=== PATIENT | female | born 2000 | race Hispanic/Latino ===

== ENCOUNTER 2020-06-11 08:39 | Outpatient (CLI) | payer OTHER, MEDICAID ==
[2020-06-11 14:56] LABS: SARS-CoV-2 PCR by NAA Not Detected (NotDetected)
== END 2020-06-11 08:40 | disposition home or self-care (01) ==
LOC: CSHLAB 08:39
PROVIDERS: ATTEND Family Medicine
DX: Z20.822 Contact with and (suspected) exposure to COVID-19 (principal)
CPT/HCPCS: 87635; U0003; U0005

== ENCOUNTER 2020-06-14 19:00 | Inpatient (IN) | payer MEDICAID, OTHER ==
[2020-06-14 22:30] VITALS: BMI 39.6
[2020-06-14] MEDS ORDERED: Docusate 100 MG CAP PO PRN (22:45)
[2020-06-14] MEDS: Lactated Ringer's 1,000 ML IV SCH (22:45)
[2020-06-14] MEDS ORDERED: Misoprostol 200 MCG TAB PR PRN (22:45)
[2020-06-14] MEDS ORDERED: Promethazine HCl 25 MG/ML VIAL IM PRN (22:45)
[2020-06-14] MEDS ORDERED: Acetaminophen 500 MG TAB PO PRN (22:45)
[2020-06-14] MEDS ORDERED: Methylergonovine 0.2 MG/ML VIAL IM PRN (22:45)
[2020-06-14] MEDS ORDERED: NS / Oxytocin 40 units/1000ml 1,000 ML IV PRN (22:45)
[2020-06-14] MEDS ORDERED: Carboprost 250 MCG/ML AMP IM PRN (22:45)
[2020-06-14] MEDS ORDERED: Ondansetron PF 4 MG/2 ML Vial IVP PRN (22:45)
[2020-06-14] MEDS ORDERED: hydrALAZINE 20 MG/ML VIAL SLOW IVP PRN (22:45)
[2020-06-14] MEDS ORDERED: Lidocaine 1% (PF) 30 ML VIAL SC PRN (22:45)
[2020-06-14] MEDS ORDERED: hydrALAZINE 20 MG/ML VIAL ONE (22:48)
[2020-06-14 23:15] LABS: Hemoglobin 11.6 g/dL (12.0-15.5); Mean Corpuscular Hemoglobin 24.3 pg (27.0-33.0); Mean Corpuscular Volume 75.9 fl (81.6-98.3); Mean Platelet Volume 10.5 fl (7.4-10.4); Platelet Count 251 10x3/uL (150-450); RBC Distribution Width 17.4 % (11.5-14.5); Red Blood Cell (RBC) Count 4.77 10x6/uL (3.90-5.03); White Blood Cell (WBC) Count 15.2 10x3/uL (3.5-10.5)
[2020-06-14] MEDS ORDERED: Calcium Gluc 4.6 MEQ/10 ML (100 MG/ML) SLOW IVP PRN (23:26)
[2020-06-14] MEDS ORDERED: Magnesium Sulfate 20 gm/500 ml 20 GM/500 ML BAG ONE (23:27)
[2020-06-14] MEDS ORDERED: Magnesium Sulfate 20 GM/WATER 500 ML BAG IVPB SCH (23:30)
[2020-06-14] MEDS ORDERED: Magnesium Sulfate 20 gm/500 ml 20 GM/500 ML BAG IVPB SCH (23:30)
[2020-06-14 23:41] LABS: Hep B Surf Ag Non-Reactive S/CO (NonReactive)
[2020-06-14 23:42] LABS: Syphilis Antibody Nonreactive (Nonreactive); Syphilis Antibody Index 0.04 S/CO (<1.00 Non-Reactive)
[2020-06-14] MEDS ORDERED: Labetalol HCl 100 MG/20 ML VIAL SLOW IVP PRN (23:47)
[2020-06-14 23:54] LABS: HBSAg Index 0.13 S/CO (0-0.99)
[2020-06-14] MEDS: hydrALAZINE 20 MG/ML VIAL SLOW IVP PRN (23:56)
[2020-06-15] MEDS ORDERED: Fentanyl 4 mcg/Bup 0.1% Cadd 100 ML ONE (00:11)
[2020-06-15 00:41] LABS: ALT (SGPT) 13 U/L (8-55); AST (SGOT) 19 U/L (5-34); Albumin 3.4 g/dL (3.5-5.0); Alkaline Phosphatase 152 U/L (40-100); Anion Gap 15 mmol/L (10-20); BUN (Urea Nitrogen) 10 mg/dL (7.0-18.7); Bilirubin, Total 0.3 mg/dL (0.2-1.2); Calc. Creatinine Clearance 192 mL/min (70-130); Calcium 8.8 mg/dL (7.8-10.44); Carbon Dioxide 18 mmol/L (22-29); Chloride 107 mmol/L (98-107); Globulin 2.6 g/dL (2.4-3.5); Glucose 90 mg/dL (70-105); Potassium 4.1 mmol/L (3.5-5.1); Sodium 136 mmol/L (136-145)
[2020-06-15 00:43] LABS: Creatinine, Urine 262.43 mg/dL (47-110)
[2020-06-15] MEDS ORDERED: Eucerin (Mineral Oil/Petrolatum,White) 30 gm Jar TOP PRN (00:53)
[2020-06-15] MEDS ORDERED: Ondansetron PF 4 MG/2 ML Vial IVP PRN (00:53)
[2020-06-15] MEDS ORDERED: Lactated Ringer's 500 ML IV PRN (00:53)
[2020-06-15] MEDS ORDERED: ePHEDrine 50 MG/ML VIAL SLOW IVP PRN (00:53)
[2020-06-15] MEDS ORDERED: Promethazine HCl 25 MG/ML VIAL IM PRN (00:53)
[2020-06-15] MEDS ORDERED: Acetaminophen 325 MG TAB PO PRN (00:53)
[2020-06-15] MEDS ORDERED: diphenhydrAMINE 50 MG/ML VIAL IVP PRN (00:53)
[2020-06-15] MEDS ORDERED: Naloxone HCl 0.4 mg/ml Vial IVP PRN ×2 (00:53)
[2020-06-15] MEDS ORDERED: Communication Order-Pharmacy FS SCH (01:00)
[2020-06-15] MEDS ORDERED: Fentanyl 4 mcg/Bupivacaine 0.1% Cassette 100 ML EPIDURAL SCH (01:00)
[2020-06-15] MEDS: NS w/ Oxytocin 30 units 500 ML ONE ×2 (01:11→09:32)
[2020-06-15] MEDS ORDERED: Lactated Ringer's 500 ML IV SCH (03:45)
[2020-06-15] MEDS: Lactated Ringer's 1,000 ML IV SCH (06:48)
[2020-06-15] MEDS ORDERED: Carboprost 250 MCG/ML AMP ONE (07:46)
[2020-06-15] MEDS ORDERED: Methylergonovine 0.2 MG/ML VIAL ONE (07:46)
[2020-06-15] MEDS ORDERED: Misoprostol 200 MCG TAB ONE (07:46)
[2020-06-15 08:36] LABS: RapidComm Collect By NURSE; pH (Cord, venous) 7.272 (7.250-7.350)
[2020-06-15 08:37] LABS: RapidComm Collect By NURSE
[2020-06-15] MEDS ORDERED: Erythromycin Base 0.5% Oint 1 GM TUBE ONE (08:56)
[2020-06-15] MEDS ORDERED: Phytonadione Neonatal 1 MG/0.5 ML AMP ONE (08:56)
[2020-06-15] MEDS ORDERED: Adacel (T-DAP) 0.5 ML SYRINGE IM ONE (09:11)
[2020-06-15] MEDS ORDERED: Bisacodyl 10 MG SUPP PR PRN (09:11)
[2020-06-15] MEDS ORDERED: HYDROcodone/Acetaminophen 5/325 mg Tablet PO PRN (09:11)
[2020-06-15] MEDS ORDERED: hydrALAZINE 20 MG/ML VIAL SLOW IVP PRN (09:11)
[2020-06-15] MEDS ORDERED: Milk Of Magnesia 30 ML UDCUP PO PRN (09:11)
[2020-06-15] MEDS ORDERED: NS w/ Oxytocin 30 units 500 ML IVPB SCH (09:30)
[2020-06-15] MEDS ORDERED: NS w/ Oxytocin 30 units 500 ML ONE (09:31)
[2020-06-15] MEDS: Docusate Calcium (SURFAK) 240 MG CAP PO SCH (22:00)
[2020-06-16] MEDS: Ferrous Sulfate 325 MG TAB PO SCH ×2 (08:25→19:45)
[2020-06-16] MEDS: Docusate Calcium (SURFAK) 240 MG CAP PO SCH ×2 (10:06→20:34)
[2020-06-16] MEDS: Lactated Ringer's 1,000 ML IV SCH ×2 (19:45→23:15)
[2020-06-17] MEDS: hydrALAZINE 20 MG/ML VIAL SLOW IVP PRN (01:22)
[2020-06-17] MEDS ORDERED: NIFEdipine XL 30 MG TAB PO SCH (02:00)
[2020-06-17 05:28] LABS: Hemoglobin 9.3 g/dL (12.0-15.5); Mean Corpuscular HGB CONC 31.4 g/dL (32.0-36.0); Mean Corpuscular Hemoglobin 24.7 pg (27.0-33.0); Mean Corpuscular Volume 78.5 fl (81.6-98.3); Mean Platelet Volume 10.6 fl (7.4-10.4); Platelet Count 235 10x3/uL (150-450); RBC Distribution Width 17.5 % (11.5-14.5); Red Blood Cell (RBC) Count 3.77 10x6/uL (3.90-5.03); White Blood Cell (WBC) Count 9.6 10x3/uL (3.5-10.5)
[2020-06-17 05:43] LABS: ALT (SGPT) 13 U/L (8-55); AST (SGOT) 16 U/L (5-34); Albumin 2.7 g/dL (3.5-5.0); Alkaline Phosphatase 103 U/L (40-100); Anion Gap 14 mmol/L (10-20); BUN (Urea Nitrogen) 5 mg/dL (7.0-18.7); Bilirubin, Total 0.2 mg/dL (0.2-1.2); Calc. Creatinine Clearance 214 mL/min (70-130); Carbon Dioxide 20 mmol/L (22-29); Chloride 110 mmol/L (98-107); Globulin 2.5 g/dL (2.4-3.5); Glucose 102 mg/dL (70-105); Potassium 4.1 mmol/L (3.5-5.1); Protein, Total 5.2 g/dL (6.0-8.3); Sodium 140 mmol/L (136-145)
[2020-06-17 07:17] LABS: Creatinine, Urine 135.51 mg/dL (47-110)
[2020-06-17] MEDS: Ferrous Sulfate 325 MG TAB PO SCH ×2 (08:47→18:36)
[2020-06-17] MEDS: NIFEdipine XL 30 MG TAB PO SCH (08:55)
[2020-06-17] MEDS: Docusate Calcium (SURFAK) 240 MG CAP PO SCH ×2 (08:55→21:11)
[2020-06-17] MEDS: Lactated Ringer's 1,000 ML IV SCH (08:57)
[2020-06-18] MEDS: Lactated Ringer's 1,000 ML IV SCH ×3 (07:43→09:55)
[2020-06-18] MEDS: Ferrous Sulfate 325 MG TAB PO SCH ×3 (07:43→16:06)
[2020-06-18] MEDS: NIFEdipine XL 30 MG TAB PO SCH (07:44)
[2020-06-18] MEDS: Docusate Calcium (SURFAK) 240 MG CAP PO SCH ×2 (07:45→21:54)
[2020-06-18] MEDS: hydrALAZINE 20 MG/ML VIAL SLOW IVP PRN (08:57)
[2020-06-18] MEDS ORDERED: NIFEdipine XL 30 MG TAB PO SCH (09:30)
[2020-06-18] MEDS ORDERED: Bupivacaine 0.25% HCL 30 ML VIAL ONE (19:46)
[2020-06-19] MEDS: Lactated Ringer's 1,000 ML IV SCH (01:47)
[2020-06-19] MEDS: Docusate Calcium (SURFAK) 240 MG CAP PO SCH (08:01)
[2020-06-19] MEDS: Ferrous Sulfate 325 MG TAB PO SCH (08:01)
[2020-06-19] MEDS ORDERED: NIFEdipine XL 60 MG TAB PO SCH (09:00)
[2020-06-19 11:15] VITALS: BP 155/81; TEMP 99.5
== END 2020-06-19 12:35 | disposition home or self-care (01) | DRG 806 ==
LOC: CSHLD 21:45 → CSHANTE 06-15 20:00
PROVIDERS: ADMIT Family Medicine; ATTEND Family Medicine
PROC: 3E033VJ Introduction of Other Hormone into Peripheral Vein, Percutaneous Approach (ICD-10-PCS; 2020-06-13)
PROC: 10907ZC Drainage of Amniotic Fluid, Therapeutic from Products of Conception, Via Natural or Artificial Opening (ICD-10-PCS; 2020-06-14)
PROC: 10E0XZZ Delivery of Products of Conception, External Approach (ICD-10-PCS; principal; 2020-06-15)
PROC: 0KQM0ZZ Repair Perineum Muscle, Open Approach (ICD-10-PCS; 2020-06-15)
DX: O14.14 Severe pre-eclampsia complicating childbirth (principal); D62 Acute posthemorrhagic anemia; Z37.0 Single live birth; Z3A.39 39 weeks gestation of pregnancy; Z20.822 Contact with and (suspected) exposure to COVID-19; O99.214 Obesity complicating childbirth; E66.9 Obesity, unspecified; Z79.82 Long term (current) use of aspirin; O76 Abnormality in fetal heart rate and rhythm complicating labor and delivery; O70.1 Second degree perineal laceration during delivery; O66.0 Obstructed labor due to shoulder dystocia; O99.345 Other mental disorders complicating the puerperium; F53.0 Postpartum depression; O90.81 Anemia of the puerperium
CPT/HCPCS: 36415; 51702; 80053; 82570; 82805; 83735; 84156; 84550; 85027; 86780; 86850; 86900; 86901; 87340; J0360; J2405; J2590; J3475; S0020

== ENCOUNTER 2022-04-04 19:23 | Day surgery (SDC) | payer OTHER ==
[2022-04-04 19:45] VITALS: BMI 32.8
[2022-04-04] MEDS ORDERED: hydrALAZINE 20 MG/ML VIAL SLOW IVP PRN (20:36)
[2022-04-04 21:51] LABS: #Eosinphils 0.1 10x3/uL (0.0-0.5); #Monocytes 0.8 10x3/uL (0.0-1.1); #Neutrophils 9.1 10x3/uL (1.5-8.4); %Basophils 0.2 % (0.0-2.0); %Eosinophils 0.5 % (0.0-6.0); %Lymphocytes 17.7 % (18.0-47.0); %Monocytes 6.5 % (0.0-10.0); %Neutrophils 74.4 % (40.0-75.0); Hemoglobin 10.2 g/dL (12.0-15.5); Mean Corpuscular HGB CONC 32.1 g/dL (32.0-36.0); Mean Corpuscular Hemoglobin 22.9 pg (27.0-33.0); Mean Corpuscular Volume 71.5 fl (81.6-98.3); Mean Platelet Volume 9.6 fl (7.4-10.4); Platelet Count 354 10x3/uL (150-450); RBC Distribution Width 17.7 % (11.5-14.5); Red Blood Cell (RBC) Count 4.45 10x6/uL (3.90-5.03); White Blood Cell (WBC) Count 12.3 10x3/uL (3.5-10.5)
[2022-04-04 22:03] LABS: ALT (SGPT) 9 U/L (8-55); AST (SGOT) 12 U/L (5-34); Albumin 3.5 g/dL (3.5-5.0); Alkaline Phosphatase 101 U/L (40-110); Anion Gap 15 mmol/L (10-20); BUN (Urea Nitrogen) 8 mg/dL (7.0-18.7); Bilirubin, Total 0.2 mg/dL (0.2-1.2); Calc. Creatinine Clearance 180 mL/min (70-130); Calcium 8.9 mg/dL (7.8-10.44); Carbon Dioxide 20 mmol/L (22-29); Chloride 108 mmol/L (98-107); Estimated GFR 130; Globulin 3.1 g/dL (2.4-3.5); Glucose 99 mg/dL (70-105); Protein, Total 6.6 g/dL (6.0-8.3); Sodium 139 mmol/L (136-145)
[2022-04-04 23:02] LABS: Creatinine, Urine 50.04 mg/dL (47-110)
== END 2022-04-05 | disposition home or self-care (01) ==
LOC: CSHLD/OP 19:23
PROVIDERS: ATTEND Obstetrics & Gynecology
DX: O46.93 Antepartum hemorrhage, unspecified, third trimester (principal); O47.03 False labor before 37 completed weeks of gestation, third trimester; Z79.82 Long term (current) use of aspirin; Z79.899 Other long term (current) drug therapy; Z87.59 Personal history of other complications of pregnancy, childbirth and the puerperium; Z3A.30 30 weeks gestation of pregnancy
CPT/HCPCS: 76815; 80053; 82570; 84156; 85025; 99283

== ENCOUNTER → 2022-05-09 | Day surgery (SDC) | payer OTHER ==
[~2022-05-09] MED LIST: Acetaminophen 500 MG TAB ONE; Acetaminophen 500 MG TAB PO SCH; Iron Sucrose Complex 500 MG in Sodium Chloride 0.9% 250 ML 250 ML IVPB SCH
== END ==
LOC: CSHSDC/OP 08:52
PROVIDERS: ATTEND Student in an Organized Health Care Education/Training Program
DX: O99.019 Anemia complicating pregnancy, unspecified trimester (principal); D64.9 Anemia, unspecified
CPT/HCPCS: J1756; J7050

== ENCOUNTER 2022-06-01 11:55 | Inpatient (IN) | payer OTHER ==
[2022-06-01] MEDS ORDERED: Lidocaine 1% (PF) 30 ML VIAL SC PRN (12:44)
[2022-06-01] MEDS ORDERED: Diphenoxylate HCl/Atropine Tablet PO PRN (12:44)
[2022-06-01] MEDS ORDERED: Ibuprofen 800 MG TAB PO PRN (12:44)
[2022-06-01] MEDS ORDERED: Carboprost 250 MCG/ML AMP IM PRN (12:44)
[2022-06-01] MEDS ORDERED: Acetaminophen 500 MG TAB PO PRN (12:44)
[2022-06-01] MEDS ORDERED: Ondansetron PF 4 MG/2 ML Vial IVP PRN ×2 (12:44→13:27)
[2022-06-01] MEDS ORDERED: Misoprostol 200 MCG TAB PR PRN (12:44)
[2022-06-01] MEDS ORDERED: Promethazine HCl 25 MG/ML VIAL IM PRN ×2 (12:44→13:27)
[2022-06-01] MEDS ORDERED: Methylergonovine 0.2 MG/ML VIAL IM PRN ×2 (12:44→13:27)
[2022-06-01] MEDS ORDERED: hydrALAZINE 20 MG/ML VIAL SLOW IVP PRN ×3 (12:44→21:26)
[2022-06-01] MEDS ORDERED: NS w/ Oxytocin 30 units 500 ML IV SCH ×2 (12:45→13:27)
[2022-06-01 12:52] VITALS: BMI 35.9
[2022-06-01] MEDS ORDERED: NS w/ Oxytocin 30 units 500 ML ONE (12:58)
[2022-06-01 13:17] LABS: Hemoglobin 12.2 g/dL (12.0-15.5); Mean Corpuscular HGB CONC 30.8 g/dL (32.0-36.0); Mean Corpuscular Hemoglobin 23.6 pg (27.0-33.0); Mean Corpuscular Volume 76.7 fl (81.6-98.3); Mean Platelet Volume 10.8 fl (7.4-10.4); Platelet Count 296 10x3/uL (150-450); RBC Distribution Width 22.1 % (11.5-14.5); Red Blood Cell (RBC) Count 5.16 10x6/uL (3.90-5.03)
[2022-06-01] MEDS ORDERED: Bisacodyl 10 MG SUPP PR PRN (13:27)
[2022-06-01] MEDS ORDERED: Milk Of Magnesia 30 ML UDCUP PO PRN (13:27)
[2022-06-01] MEDS ORDERED: diphenhydrAMINE 25 MG CAP PO PRN (13:27)
[2022-06-01] MEDS ORDERED: Benzocaine-Menthol 82.5 ML CAN TOP PRN (13:27)
[2022-06-01] MEDS ORDERED: Boostrix 0.5 ML (Tdap) VIAL (>/=7 yrs of age) IM ONE (13:27)
[2022-06-01] MEDS ORDERED: Lanolin Ointment 7 GM TUBE TOP PRN (13:27)
[2022-06-01] MEDS ORDERED: Preparation H Ointment 28 GM TUBE PR PRN (13:27)
[2022-06-01 13:46] LABS: Syphilis Antibody Nonreactive (Nonreactive); Syphilis Antibody Index 0.05 S/CO (<1.00 Non-Reactive)
[2022-06-01 13:47] LABS: HBSAg Index 0.19 S/CO (0-0.99); Hep B Surf Ag - L&D Non-Reactive S/CO (NonReactive)
[2022-06-01] MEDS ORDERED: Misoprostol 200 MCG TAB PR SCH (14:00)
[2022-06-01 16:46] LABS: Creatinine, Urine 38.27 mg/dL (47-110); Protein, Urine Random Quant Less than 10 mg/dL (1-14)
[2022-06-01 17:02] LABS: ALT (SGPT) 11 U/L (8-55); AST (SGOT) 22 U/L (5-34); Albumin 3.8 g/dL (3.5-5.0); Alkaline Phosphatase 134 U/L (40-110); Anion Gap 22 mmol/L (10-20); BUN (Urea Nitrogen) 8 mg/dL (7.0-18.7); Bilirubin, Total 0.2 mg/dL (0.2-1.2); Calc. Creatinine Clearance 179 mL/min (70-130); Calcium 8.9 mg/dL (7.8-10.44); Carbon Dioxide 13 mmol/L (22-29); Chloride 107 mmol/L (98-107); Estimated GFR 127; Glucose 78 mg/dL (70-105); Potassium 4.2 mmol/L (3.5-5.1); Protein, Total 6.8 g/dL (6.0-8.3); Sodium 138 mmol/L (136-145)
[2022-06-01] MEDS: Ibuprofen 800 MG TAB PO SCH ×2 (17:05→23:05)
[2022-06-01] MEDS: Ferrous Sulfate 325 MG TAB PO SCH (17:10)
[2022-06-01] MEDS ORDERED: Calcium Gluc 4.6 MEQ/10 ML (100 MG/ML) SLOW IVP PRN (21:26)
[2022-06-01] MEDS ORDERED: Lorazepam 2 MG/ML VIAL SLOW IVP PRN (21:26)
[2022-06-01] MEDS ORDERED: Magnesium Sulfate 20 gm/500 ml 20 GM/500 ML BAG IVPB SCH (21:30)
[2022-06-01] MEDS ORDERED: Magnesium Sulfate 20 gm/500 ml 20 GM/500 ML BAG ONE (22:15)
[2022-06-02] MEDS: Ferrous Sulfate 325 MG TAB PO SCH ×2 (07:36→13:19)
[2022-06-02] MEDS: Prenatal Vitamin 1 TAB PO SCH (08:01)
[2022-06-02] MEDS: Docusate 100 MG CAP PO SCH ×3 (08:01→21:39)
[2022-06-02] MEDS: Lactated Ringer's 1,000 ML IV SCH (13:18)
[2022-06-02] MEDS: Ibuprofen 800 MG TAB PO SCH ×3 (13:18→21:38)
[2022-06-03] MEDS: Ferrous Sulfate 325 MG TAB PO SCH ×2 (07:29→08:43)
[2022-06-03] MEDS: Prenatal Vitamin 1 TAB PO SCH (08:42)
[2022-06-03] MEDS: Ibuprofen 800 MG TAB PO SCH ×3 (08:43→21:48)
[2022-06-03] MEDS: Docusate 100 MG CAP PO SCH ×2 (08:43→21:49)
[2022-06-03] MEDS ORDERED: NIFEdipine XL 30 MG TAB PO SCH (11:00)
[2022-06-04] MEDS: Ibuprofen 800 MG TAB PO SCH (05:00)
[2022-06-04] MEDS: Ferrous Sulfate 325 MG TAB PO SCH (08:39)
[2022-06-04] MEDS: Prenatal Vitamin 1 TAB PO SCH (08:43)
[2022-06-04] MEDS: Docusate 100 MG CAP PO SCH (08:50)
[2022-06-04] MEDS ORDERED: NIFEdipine XL 30 MG TAB PO SCH (09:00)
[2022-06-04 10:33] VITALS: BP 143/89; TEMP 98.9
== END 2022-06-04 12:59 | disposition home or self-care (01) | DRG 807 ==
LOC: CSHLD/OP 11:55 → CSHLD 12:20 → CSHPP 16:38 → CSHLD 06-02 00:16 → CSHPP 06-02 13:38
PROVIDERS: ADMIT Family Medicine; ATTEND Family Medicine
PROC: 10E0XZZ Delivery of Products of Conception, External Approach (ICD-10-PCS; principal; 2022-06-01)
DX: O99.214 Obesity complicating childbirth (principal); Z37.0 Single live birth; Z3A.38 38 weeks gestation of pregnancy; E66.9 Obesity, unspecified; D64.9 Anemia, unspecified; O99.02 Anemia complicating childbirth; Z79.82 Long term (current) use of aspirin; Z79.899 Other long term (current) drug therapy; O14.15 Severe pre-eclampsia, complicating the puerperium; O13.5 Gestational [pregnancy-induced] hypertension without significant proteinuria, complicating the puerperium
CPT/HCPCS: 51702; 80053; 82570; 84156; 85027; 86780; 86850; 86900; 86901; 87340; 99285; J0360; J2590; J3475

== ENCOUNTER 2023-05-08 08:30 | Day surgery (SDC) | payer BC ==
[2023-05-08] MEDS ORDERED: Acetaminophen 500 MG TAB ONE (08:45)
[2023-05-08] MEDS ORDERED: Acetaminophen 500 MG TAB PO SCH (09:00)
[2023-05-08] MEDS ORDERED: Iron Sucrose Complex 500 MG in Sodium Chloride 0.9% 250 ML 250 ML IVPB SCH (09:30)
== END 2023-05-08 14:10 | disposition home or self-care (01) ==
LOC: CSHSDC 08:30
PROVIDERS: ATTEND Student in an Organized Health Care Education/Training Program
DX: O99.013 Anemia complicating pregnancy, third trimester (principal); Z3A.00 Weeks of gestation of pregnancy not specified
CPT/HCPCS: J1756; J7050

== ENCOUNTER 2023-05-15 18:17 | Inpatient (IN) | payer BC, MEDICAID ==
[2023-05-15 18:50] VITALS: BMI 37.0
[2023-05-15] MEDS ORDERED: Promethazine HCl 25 MG/ML VIAL IM PRN ×2 (18:59→21:54)
[2023-05-15] MEDS ORDERED: Diphenoxylate HCl/Atropine Tablet PO PRN (18:59)
[2023-05-15] MEDS ORDERED: hydrALAZINE 20 MG/ML VIAL SLOW IVP PRN ×2 (18:59)
[2023-05-15] MEDS ORDERED: Acetaminophen 500 MG TAB PO PRN (18:59)
[2023-05-15] MEDS ORDERED: Carboprost 250 MCG/ML AMP IM PRN (18:59)
[2023-05-15] MEDS ORDERED: Tranexamic Acid 1,000 MG/10 ML VIAL IVP PRN (18:59)
[2023-05-15] MEDS ORDERED: fentaNYL 50 mcg/mL 1 mL Vial SLOW IVP PRN (18:59)
[2023-05-15] MEDS ORDERED: Misoprostol 200 MCG TAB PR PRN (18:59)
[2023-05-15] MEDS ORDERED: Ondansetron PF 4 MG/2 ML Vial IVP PRN ×2 (18:59→21:54)
[2023-05-15] MEDS ORDERED: Oxytocin 30 units/NS 500 ML 500 ML IV SCH ×3 (19:00→20:45)
[2023-05-15 19:41] LABS: Creatinine, Urine 90.08 mg/dL (47-110)
[2023-05-15 19:46] LABS: Hematocrit 35.2 % (34.9-44.5); Hemoglobin 11.1 g/dL (12.0-15.5); Mean Corpuscular HGB CONC 31.5 g/dL (32.0-36.0); Mean Corpuscular Hemoglobin 23.2 pg (27.0-33.0); Mean Corpuscular Volume 73.5 fl (81.6-98.3); Mean Platelet Volume 10.4 fl (7.4-10.4); Platelet Count 295 10x3/uL (150-450); RBC Distribution Width 23.2 % (11.5-14.5); Red Blood Cell (RBC) Count 4.79 10x6/uL (3.90-5.03); White Blood Cell (WBC) Count 12.1 10x3/uL (3.5-10.5)
[2023-05-15 19:59] LABS: ALT (SGPT) 9 U/L (8-55); AST (SGOT) 17 U/L (5-34); Albumin 3.5 g/dL (3.5-5.0); Alkaline Phosphatase 100 U/L (40-110); Anion Gap 14 mmol/L (10-20); BUN (Urea Nitrogen) 8 mg/dL (7.0-18.7); Bilirubin, Total 0.2 mg/dL (0.2-1.2); Calc. Creatinine Clearance 201 mL/min (70-130); Calcium 8.6 mg/dL (7.8-10.44); Carbon Dioxide 18 mmol/L (22-29); Chloride 108 mmol/L (98-107); Estimated GFR 129; Globulin 2.9 g/dL (2.4-3.5); Glucose 87 mg/dL (70-105); Potassium 3.7 mmol/L (3.5-5.1); Protein, Total 6.4 g/dL (6.0-8.3); Sodium 136 mmol/L (136-145)
[2023-05-15] MEDS: Lactated Ringer's 1,000 ML IV SCH (20:30)
[2023-05-15] MEDS ORDERED: Lidocaine 1% (PF) 30 ML VIAL SC PRN (20:35)
[2023-05-15] MEDS ORDERED: Misoprostol 100 MCG TAB VAG SCH (20:45)
[2023-05-15] MEDS ORDERED: Naloxone HCl 0.4 mg/ml Vial IVP PRN ×2 (21:54)
[2023-05-15] MEDS ORDERED: ePHEDrine Sulfate 50 MG/10 ML VIAL SLOW IVP PRN (21:54)
[2023-05-15] MEDS ORDERED: Lactated Ringer's 500 ML IV PRN (21:54)
[2023-05-15] MEDS ORDERED: diphenhydrAMINE 50 MG/ML VIAL IVP PRN (21:54)
[2023-05-15] MEDS ORDERED: Acetaminophen 325 MG TAB PO PRN (21:54)
[2023-05-15] MEDS ORDERED: Moisturizing Cream (Eucerin) 113 GM JAR TOP PRN (21:54)
[2023-05-15] MEDS ORDERED: Communication Order-Pharmacy FS SCH (22:00)
[2023-05-15] MEDS ORDERED: fentaNYL 2 mcg/Ropivacaine 0.2% Epidural 100 ML CADD EPIDURAL SCH (22:00)
[2023-05-15] MEDS: fentaNYL/Ropivacaine Epidural 100 ML ONE (22:12)
[2023-05-16] MEDS: Oxytocin 30 units/NS 500 ML 500 ML IV SCH (00:10)
[2023-05-16 00:34] LABS: HBSAg Index 0.21 S/CO (0-0.99); Hep B Surf Ag - L&D Non-Reactive S/CO (NonReactive)
[2023-05-16 00:35] LABS: Syphilis Antibody Nonreactive (Nonreactive)
[2023-05-16] MEDS ORDERED: Bisacodyl 10 MG SUPP PR PRN (03:45)
[2023-05-16] MEDS ORDERED: Milk Of Magnesia 30 ML UDCUP PO PRN (03:45)
[2023-05-16] MEDS: Ibuprofen 800 MG TAB PO PRN (04:54)
[2023-05-16] MEDS ORDERED: Methylergonovine 0.2 MG/ML VIAL IM PRN (07:07)
[2023-05-16] MEDS: Ferrous Sulfate 325 MG TAB PO SCH (08:16)
[2023-05-16] MEDS: Docusate 100 MG CAP PO PRN (08:55)
[2023-05-16] MEDS: Ibuprofen 800 MG TAB PO SCH (14:11)
[2023-05-17] MEDS: Labetalol HCl 100 MG TAB PO SCH ×2 (14:10→20:50)
[2023-05-18] MEDS: Boostrix 0.5 ML (Tdap) VIAL (>/=7 yrs of age) IM ONE (08:53)
[2023-05-18 11:55] VITALS: BP 132/72; TEMP 98.9
== END 2023-05-18 15:20 | disposition home or self-care (01) | DRG 807 ==
LOC: CSHLD/OP 18:17 → CSHLD 20:35 → CSHPP 05-16 05:58
PROVIDERS: ADMIT Family Medicine; ATTEND Family Medicine
PROC: 10E0XZZ Delivery of Products of Conception, External Approach (ICD-10-PCS; principal; 2023-05-16)
PROC: 10907ZC Drainage of Amniotic Fluid, Therapeutic from Products of Conception, Via Natural or Artificial Opening (ICD-10-PCS; 2023-05-16)
DX: O14.94 Unspecified pre-eclampsia, complicating childbirth (principal); Z37.0 Single live birth; Z3A.37 37 weeks gestation of pregnancy
CPT/HCPCS: 36415; 51702; 80053; 82570; 84156; 85027; 86780; 86850; 86900; 86901; 87340; 99285; J2590; J7120